=== PATIENT | female | born 1965 | race Asian ===

== ENCOUNTER 2020-06-09 12:27 | Outpatient (CLI) | payer OTHER | END 2020-06-09 23:23 | disposition home or self-care (01) | LOC: LAB 12:27 | PROVIDERS: ATTEND Nurse Practitioner Family | DX: Z20.828 Contact with and (suspected) exposure to other viral communicable diseases (principal); J32.9 Chronic sinusitis, unspecified | CPT/HCPCS: 87635; G2023; U0003 ==